=== PATIENT | female | born 1950 | race Caucasian/White ===

== ENCOUNTER 2018-08-01 22:10 | Inpatient (IN) | payer BC, OTHER ==
[~2018-08-01] VITALS: Ht 154.9 cm; Wt 89.4 kg
[2018-08-01 22:20] VITALS: BP_SYST 121
[2018-08-01] MEDS ORDERED: KETOROLAC TROMETHAMINE 30 MG VIAL IVP ONE (22:45)
[2018-08-01] MEDS ORDERED: ONDANSETRON HCL 4 MG/2 ML VIAL IVP ONE (23:15)
[2018-08-01] MEDS ORDERED: MORPHINE 4 MG/ML INJ. SYRINGE IVP ONE (23:15)
[2018-08-01] MEDS ORDERED: GABAPENTIN 100 MG CAPSULE PO ONE (23:15)
[2018-08-02] MEDS ORDERED: NALBUPHINE HCL 10 MG/ML AMP IVP ONE (00:15)
[2018-08-02] MEDS ORDERED: ENAL20TA PO (00:36)
[2018-08-02] MEDS ORDERED: HCT25 PO (00:36)
[2018-08-02] MEDS ORDERED: NOR10 PO (00:36)
[2018-08-02] MEDS ORDERED: NALBUPHINE HCL 10 MG/ML AMP ONE (00:49)
[2018-08-02 00:55] LABS: WHITE BLOOD COUNT (AUTO) 9.8 K/uL (4.8-10.8)
[2018-08-02 00:56] LABS: BASOPHILS % (AUTO) 0.3 % (0.0-2.0); EOSINOPHILS # (AUTO) 0.1 K/uL (0.0-0.4); EOSINOPHILS % (AUTO) 0.6 % (0.0-4.0); HEMATOCRIT 37.3 % (36-48); HEMOGLOBIN 12.7 g/dL (12.0-16.0); LYMPHOCYTES % (AUTO) 20.2 % (20.5-51.5); MEAN CORPUSCULAR HEMOGLOBIN 29 pg (27-31); MEAN CORPUSCULAR HGB CONC 34 % (32-36); MEAN CORPUSCULAR VOLUME 86 fL (79.0-98.0); MONOCYTES # (AUTO) 0.9 K/uL (0.0-1.0); MONOCYTES % (AUTO) 8.8 % (1.7-9.3); NEUTROPHILS # (AUTO) 6.9 K/uL (1.8-7.7); NEUTROPHILS % (AUTO) 70.1 % (40.0-70.0); PLATELET COUNT (AUTO) 266 K/uL (130-430); RED BLOOD CELL COUNT(AUTO) 4.35 MIL/uL (4.2-6.2); RED CELL DISTRIBUTION WIDTH 15.3 % (9.0-15.0)
[2018-08-02] MEDS ORDERED: HYDROmorphone 1 MG INJ. 1 MG/ML AMPUL IVP ONE (01:00)
[2018-08-02 01:05] LABS: CALCIUM 8.4 mg/dL (8.4-11.0); CREATININE 0.68 mg/dL (0.55-1.30)
[2018-08-02 01:09] LABS: PROTHROMBIN TIME 9.9 SECS (9.5-12.5)
[2018-08-02 01:12] LABS: ALBUMIN 3.2 g/dL (3.4-4.8); TOTAL BILIRUBIN 0.5 mg/dL (0.0-1.0)
[2018-08-02 01:15] LABS: POTASSIUM 2.3 mmol/L (3.5-5.1)
[2018-08-02] MEDS ORDERED: KCL 20 mEq in 100 mL (PREMIX) 100 ML IV ONE (01:15)
[2018-08-02] MEDS ORDERED: fentaNYL CITRATE/PF 100 MCG/2 ML AMP IVP ONE (01:15)
[2018-08-02 01:39] LABS: BILIRUBIN,URINE NEGATIVE (NEGATIVE); BLOOD, URINE NEGATIVE (NEGATIVE); CLARITY/URINE CLEAR (CLEAR); COLOR,URINE YELLOW (YELLOW); GLUCOSE,URINE NEGATIVE (NEGATIVE); KETONES,URINE NEGATIVE (NEGATIVE); LEUKOCYTE ESTERASE ,URINE NEGATIVE (NEGATIVE); NITRITE, URINE NEGATIVE (NEGATIVE); PROTEIN URINE NEGATIVE (NEGATIVE); UROBILINOGEN,URINE 0.2 (0.2-1.0)
[2018-08-02] MEDS ORDERED: ACETAMINOPHEN 325 MG TABLET PO PRN (01:45)
[2018-08-02] MEDS ORDERED: MORPHINE 4 MG/ML INJ. SYRINGE IVP PRN (01:45)
[2018-08-02] MEDS ORDERED: ONDANSETRON HCL 4 MG/2 ML VIAL IVP PRN (01:45)
[2018-08-02 02:32] VITALS: BP_SYST 137
[2018-08-02 02:38] VITALS: BP_SYST 137
[2018-08-02] MEDS ORDERED: MORPHINE SULFATE 10 MG/ML VIAL IVP PRN (04:45)
[2018-08-02] MEDS ORDERED: BACLOFEN 10 MG TABLET PO PRN (04:45)
[2018-08-02] MEDS ORDERED: KETOROLAC TROMETHAMINE 30 MG VIAL ONE (04:58)
[2018-08-02] MEDS ORDERED: BACLOFEN 10 MG TABLET ONE (04:59)
[2018-08-02] MEDS: HYDROcodone/ACETAMIN 5-325 MG TAB (NORCO/ VICODIN) PO PRN ×3 (05:03→12:20)
[2018-08-02] MEDS ORDERED: KETOROLAC TROMETHAMINE 30 MG VIAL IVP SCH (05:15)
[2018-08-02] MEDS ORDERED: POTASSIUM CHLORIDE 20 MEQ TAB.PRT.SR PO SCH (05:15)
[2018-08-02] MEDS ORDERED: POTASSIUM CHLORIDE 40 MEQ in NS 250 ML IV SCH (05:30)
[2018-08-02 07:41] LABS: CALCIUM 8.4 mg/dL (8.4-11.0); CREATININE 0.65 mg/dL (0.55-1.30)
[2018-08-02 07:45] LABS: ALBUMIN 3.3 g/dL (3.4-4.8); PHOSPHORUS 3.4 mg/dL (2.7-4.5); TOTAL BILIRUBIN 0.6 mg/dL (0.0-1.0)
[2018-08-02] MEDS ORDERED: HYDROmorphone 2 MG/ML VIAL IVP ONE (07:45)
[2018-08-02 07:48] LABS: POTASSIUM 2.8 mmol/L (3.5-5.1)
[2018-08-02 08:00] VITALS: BP_SYST 110
[2018-08-02 08:06] LABS: HEMOGLOBIN 13.2 g/dL (12.0-16.0); RED BLOOD CELL COUNT(AUTO) 4.46 MIL/uL (4.2-6.2); WHITE BLOOD COUNT (AUTO) 8.9 K/uL (4.8-10.8)
[2018-08-02 08:07] LABS: BASOPHILS % (AUTO) 0.6 % (0.0-2.0); EOSINOPHILS % (AUTO) 0.5 % (0.0-4.0); HEMATOCRIT 38.8 % (36-48); LYMPHOCYTES # (AUTO) 1.8 K/uL (1.0-5.5); LYMPHOCYTES % (AUTO) 20.3 % (20.5-51.5); MEAN CORPUSCULAR HEMOGLOBIN 30 pg (27-31); MEAN CORPUSCULAR HGB CONC 34 % (32-36); MEAN CORPUSCULAR VOLUME 87 fL (79.0-98.0); MONOCYTES # (AUTO) 0.9 K/uL (0.0-1.0); NEUTROPHILS # (AUTO) 6.1 K/uL (1.8-7.7); NEUTROPHILS % (AUTO) 68.6 % (40.0-70.0); PLATELET COUNT (AUTO) 270 K/uL (130-430); RED CELL DISTRIBUTION WIDTH 15.4 % (9.0-15.0)
[2018-08-02] MEDS ORDERED: KETOROLAC TROMETHAMINE 30 MG VIAL IVP PRN (08:15)
[2018-08-02] MEDS: BACLOFEN 10 MG TABLET PO SCH ×3 (08:32→22:04)
[2018-08-02] MEDS: amLODIPine BESYLATE 10 MG TABLET PO SCH (09:00)
[2018-08-02] MEDS: POTASSIUM CHLORIDE 8 MEQ TABLET.SA PO SCH (09:00)
[2018-08-02] MEDS ORDERED: ENOXAPARIN SODIUM 40 MG/0.4 ML SYRINGE SUBCUT SCH (09:00)
[2018-08-02] MEDS: HYDROCHLOROTHIAZIDE 25 MG TABLET (HCTZ) PO SCH (09:00)
[2018-08-02] MEDS: ENALAPRIL MALEATE 10 MG TABLET (VASOTEC) PO SCH (09:00)
[2018-08-02 12:02] VITALS: BP_SYST 101
[2018-08-02] MEDS: GABAPENTIN 100 MG CAPSULE PO SCH ×3 (12:19→22:04)
[2018-08-02] MEDS: ONDANSETRON HCL 4 MG/2 ML VIAL IVP PRN ×2 (13:35→18:29)
[2018-08-02] MEDS: HYDROmorphone 2 MG/ML VIAL IVP PRN ×2 (13:36→18:30)
[2018-08-02 16:18] VITALS: BP_SYST 114
[2018-08-02 21:59] VITALS: BP_SYST 112
[2018-08-03 02:26] VITALS: BP_SYST 105
[2018-08-03] MEDS: HYDROmorphone 2 MG/ML VIAL IVP PRN ×3 (04:47→09:12)
[2018-08-03] MEDS: HYDROcodone/ACETAMIN 5-325 MG TAB (NORCO/ VICODIN) PO PRN ×2 (06:42→17:58)
[2018-08-03 07:19] LABS: CALCIUM 8.3 mg/dL (8.4-11.0); CREATININE 0.74 mg/dL (0.55-1.30)
[2018-08-03 07:55] VITALS: BP_SYST 140
[2018-08-03] MEDS: GABAPENTIN 100 MG CAPSULE PO SCH ×3 (09:08→20:09)
[2018-08-03] MEDS: BACLOFEN 10 MG TABLET PO SCH ×3 (09:08→20:08)
[2018-08-03] MEDS: POTASSIUM CHLORIDE 8 MEQ TABLET.SA PO SCH (09:08)
[2018-08-03] MEDS: ENOXAPARIN SODIUM 40 MG/0.4 ML SYRINGE SUBCUT SCH (09:14)
[2018-08-03] MEDS: amLODIPine BESYLATE 10 MG TABLET PO SCH (09:23)
[2018-08-03] MEDS: HYDROCHLOROTHIAZIDE 25 MG TABLET (HCTZ) PO SCH (09:24)
[2018-08-03] MEDS: ENALAPRIL MALEATE 10 MG TABLET (VASOTEC) PO SCH (09:26)
[2018-08-03] MEDS ORDERED: DEXAMETHASONE SOD PHOSPHATE 10 MG/ML VIAL IVP ONE (10:15)
[2018-08-03 11:36] VITALS: BP_SYST 148
[2018-08-03] MEDS ORDERED: POTASSIUM CHLORIDE 40 MEQ in NS 250 ML IV ONE (12:00)
[2018-08-03] MEDS ORDERED: oxyCODONE HCL 10 MG TAB.ER.12H PO ONE (12:15)
[2018-08-03] MEDS: HYDROmorphone 1 MG INJ. 1 MG/ML AMPUL IVP PRN ×2 (15:28→20:19)
[2018-08-03 15:41] VITALS: BP_SYST 126
[2018-08-03 19:52] VITALS: BP_SYST 124
[2018-08-03] MEDS: oxyCODONE HCL 10 MG TAB.ER.12H PO SCH (20:08)
[2018-08-03] MEDS: DOCUSATE SODIUM 100 MG CAPSULE PO SCH (20:09)
[2018-08-03 23:46] VITALS: BP_SYST 131
[2018-08-04] MEDS: HYDROmorphone 1 MG INJ. 1 MG/ML AMPUL IVP PRN ×3 (06:55→15:45)
[2018-08-04 08:00] VITALS: BP_SYST 128
[2018-08-04 08:00] LABS: CALCIUM 9.2 mg/dL (8.4-11.0); CREATININE 0.9 mg/dL (0.55-1.30); POTASSIUM 3.7 mmol/L (3.5-5.1)
[2018-08-04] MEDS: DOCUSATE SODIUM 100 MG CAPSULE PO SCH ×2 (08:01→21:41)
[2018-08-04] MEDS: BACLOFEN 10 MG TABLET PO SCH ×3 (08:01→21:41)
[2018-08-04] MEDS: GABAPENTIN 100 MG CAPSULE PO SCH ×3 (08:01→21:41)
[2018-08-04] MEDS: POTASSIUM CHLORIDE 8 MEQ TABLET.SA PO SCH (08:01)
[2018-08-04] MEDS: oxyCODONE HCL 10 MG TAB.ER.12H PO SCH ×2 (08:01→21:41)
[2018-08-04] MEDS: ENOXAPARIN SODIUM 40 MG/0.4 ML SYRINGE SUBCUT SCH (08:02)
[2018-08-04 08:10] LABS: ALBUMIN 3.6 g/dL (3.4-4.8); TOTAL BILIRUBIN 0.4 mg/dL (0.0-1.0)
[2018-08-04] MEDS: HYDROCHLOROTHIAZIDE 25 MG TABLET (HCTZ) PO SCH (08:18)
[2018-08-04] MEDS: amLODIPine BESYLATE 10 MG TABLET PO SCH (08:19)
[2018-08-04] MEDS: ENALAPRIL MALEATE 10 MG TABLET (VASOTEC) PO SCH (08:20)
[2018-08-04 11:54] VITALS: BP_SYST 120
[2018-08-04] MEDS ORDERED: IOHEXOL 100 ML IV ONE (12:33)
[2018-08-04 13:30] VITALS: BP_SYST 103
[2018-08-04] MEDS: HYDROcodone/ACETAMIN 5-325 MG TAB (NORCO/ VICODIN) PO PRN ×2 (14:32→18:37)
[2018-08-04] MEDS ORDERED: ENOXAPARIN SODIUM 40 MG/0.4 ML SYRINGE SUBCUT SCH (17:00)
[2018-08-04] MEDS ORDERED: NORMAL SALINE 10 ML VIAL IVP ONE (18:34)
[2018-08-04] MEDS ORDERED: IOHEXOL 350 mgI/mL, 150 ML INFUS..BTL IV ONE (18:34)
[2018-08-04] MEDS ORDERED: BUPIVACAINE /PF 0.25% 30 ML VIAL INJ ONE (18:34)
[2018-08-04] MEDS ORDERED: methylPREDNISolone ACETATE 40 MG/ML IM ONE (18:34)
[2018-08-04] MEDS ORDERED: methylPREDNISolone SOD SUCC 40 MG/ML VIAL IVP ONE (18:34)
[2018-08-04] MEDS ORDERED: LR 1,000 ML IV.SOLN IV ONE (18:34)
[2018-08-04 20:00] VITALS: BP_SYST 109
[2018-08-04] MEDS ORDERED: ZOLPIDEM TARTRATE 5 MG TABLET PO ONE (21:00)
[2018-08-05 00:11] VITALS: BP_SYST 117
[2018-08-05] MEDS: HYDROmorphone 1 MG INJ. 1 MG/ML AMPUL IVP PRN (06:08)
[2018-08-05 08:00] VITALS: BP_SYST 146
[2018-08-05] MEDS: HYDROCHLOROTHIAZIDE 25 MG TABLET (HCTZ) PO SCH (09:00)
[2018-08-05] MEDS: oxyCODONE HCL 10 MG TAB.ER.12H PO SCH (09:00)
[2018-08-05] MEDS: BACLOFEN 10 MG TABLET PO SCH ×2 (09:00→15:06)
[2018-08-05] MEDS: DOCUSATE SODIUM 100 MG CAPSULE PO SCH (09:01)
[2018-08-05] MEDS: GABAPENTIN 100 MG CAPSULE PO SCH ×2 (09:01→15:06)
[2018-08-05] MEDS: amLODIPine BESYLATE 10 MG TABLET PO SCH (09:01)
[2018-08-05] MEDS: POTASSIUM CHLORIDE 8 MEQ TABLET.SA PO SCH (09:01)
[2018-08-05] MEDS: ENALAPRIL MALEATE 10 MG TABLET (VASOTEC) PO SCH (09:01)
[2018-08-05 12:18] VITALS: BP_SYST 101
[2018-08-05] MEDS: HYDROcodone/ACETAMIN 5-325 MG TAB (NORCO/ VICODIN) PO PRN ×2 (13:37→17:30)
[2018-08-05 14:53] VITALS: BP_SYST 106
[2018-08-05] MEDS ORDERED: HYDR-4274 PO (16:11)
[2018-08-05 16:56] VITALS: BP_SYST 106
== END 2018-08-05 18:35 | disposition home or self-care (01) | DRG 552 ==
LOC: SED 22:10 → SMU 08-02 01:45
PROVIDERS: ADMIT Internal Medicine; ATTEND Internal Medicine
PROC: 3E0R3BZ Introduction of Anesthetic Agent into Spinal Canal, Percutaneous Approach (ICD-10-PCS; 2018-08-04)
PROC: BR191ZZ Fluoroscopy of Lumbar Spine using Low Osmolar Contrast (ICD-10-PCS; 2018-08-04)
PROC: 3E0R33Z Introduction of Anti-inflammatory into Spinal Canal, Percutaneous Approach (ICD-10-PCS; principal; 2018-08-04 10:30)
DX: M51.16 Intervertebral disc disorders with radiculopathy, lumbar region (principal); E87.6 Hypokalemia; I10 Essential (primary) hypertension; Z90.710 Acquired absence of both cervix and uterus; Z88.6 Allergy status to analgesic agent; Z88.0 Allergy status to penicillin
CPT/HCPCS: 36415; 72131; 76000; 80048; 80053; 81003; 83735-TC; 84100-TC; 85025; 85610-TC; 85730-TC; 87081; 96365; 96366; 96375; 97110-GP; 97116-GP; 97530-GP; 99285; J1030; J1100; J1170; J1650; J1885; J2270; J2300; J2405; J3010; J3480; J3490; J7050; J7120; Q9967